=== PATIENT | male | born 1975 | race African-American/Black ===

== ENCOUNTER 2018-10-23 11:08 | Inpatient (IN) | payer OTHER ==
[~2018-10-23] VITALS: Ht 182.9 cm; Wt 114.4 kg
[2018-10-23] VITALS (9 sets, daily range): BP systolic 125–148; BP diastolic 69–96; PULSE 95–110; RESP 18–29; Ht 182.9 cm; Wt 114.4 kg
[2018-10-23] MEDS ORDERED: SOD CHLORIDE 0.9% 1,000 ML IV STA (12:10)
--- NOTE | 2018-10-23 12:57 | ERD ---
ER Documentation Chief Complaint Chief Complaint DIARRHEA X 3 WEEKS, FEELS WEAK, SEND BY DR DICKERSON FOR FURTHER EAVL HPI Very pleasant 43-year-old gentleman who presents to the emergency room with diarrhea. The patient since the end of August has had multiple episodes of nonbloody nonbilious emesis, looser stools that have been occasionally very dark and black. The patient exhibits generalized weakness. He additionally was st arted on antibiotics around the same time for dental infection and has had 2 courses of this. He denies any watery stool or malodorous stool. The patient was sent by Dr. fernández for further evaluation of possible C. difficile colitis. He also notes abdominal discomfort and a 30 pound weight loss over this timeframe. No recent travel. ROS All systems reviewed and are negative except as per history of present illness. Medications Home Meds No Active Prescriptions or Reported Meds Allergies Allergies: Coded Allergies: No Known Allergy (Unverified , 10/23/18) PMhx/Soc History of Surgery: Yes (LT KNEE SX) Anesthesia Reaction: No Hx Neurological Disorder: No Hx Respiratory Disorders: No Hx Cardiac Disorders: No Hx Psychiatric Problems: No Hx Miscellaneous Medical Probl: Yes (RT KNEE MENISCUS TEAR) Hx Alcohol Use: No Hx Substance Use: No Hx Tobacco Use: No Smoking Status: Never smoker FmHx Family History: No diabetes Physical Exam Vitals Vital Signs Date Temp Pulse Resp B/P (MAP) Pulse Ox O2 O2 Flow FiO2 Time Delivery Rate 10/23/18 98 22 166/84 97 Room Air 14:30 (111) 10/23/18 99.5 112 18 147/94 99 11:11 (111) Physical Exam General: Well developed, well nourished, no acute distress Head: Normocephalic, atraumatic. Eyes: Pupils equally reactive, EOM intact ENT: Dry mucous membranes Neck: Supple, no lymphadenopathy Respiratory: Lungs clear bilaterally, no distress Cardiovascular: Tachycardia, no murmurs, rubs, or gallops Abdominal: Soft, mild generalized tenderness without rebound or guarding gns : Deferred MSK: No edema, no unilateral swelling, 5/5 strength Neurologic: Alert and oriented, moving all extremities, normal speech, no focal weakness, no cerebellar signs Skin: No rash Psych: Normal mood Result Diagram: 10/23/18 1231 10/23/18 1231 Results 24 hrs Laboratory Tests Test 10/23/18 12:31 10/23/18 13:15 10/23/18 14:34 White Blood Count 12.5 10^3/ul Red Blood Count 6.04 10^6/ul Hemoglobin 17.5 g/dl Hematocrit 53.6 % Mean Corpuscular Volume 88.7 fl Mean Corpuscular Hemoglobin 29.0 pg Mean Corpuscular 32.6 g/dl Hemoglobin Concent Red Cell Distribution Width 12.6 % Platelet Count 316 10^3/UL Mean Platelet Volume 12.2 fl Immature Granulocytes % 0.500 % Neutrophils % 80.0 % Lymphocytes % 12.3 % Monocytes % 6.8 % Eosinophils % 0.0 % Basophils % 0.4 % Nucleated Red Blood Cells % 0.0 /100WBC Immature Granulocytes # 0.060 10^3/ul Neutrophils # 10.0 10^3/ul Lymphocytes # 1.5 10^3/ul Monocytes # 0.9 10^3/ul Eosinophils # 0.0 10^3/ul Basophils # 0.1 10^3/ul Nucleated Red Blood Cells # 0.0 10^3/ul Sodium Level 147 mmol/L Potassium Level 5.3 mmol/L Chloride Level 101 mmol/L Carbon Dioxide Level 14 mmol/L Anion Gap 32 Blood Urea Nitrogen 24 mg/dl Creatinine 1.47 mg/dl Est Glomerular Filtrat > 60 mL/min Rate mL/min Glucose Level 627 mg/dl Hemoglobin A1c % Calcium Level 10.0 mg/dl Phosphorus Level 7.5 mg/dl Magnesium Level 3.3 mg/dl Total Bilirubin 0.3 mg/dl Direct Bilirubin 0.00 mg/dl Indirect Bilirubin 0.3 mg/dl Aspartate Amino 64 IU/L Transf (AST/SGOT) Alanine 48 IU/L Aminotransferase (ALT/SGPT) Alkaline Phosphatase 197 IU/L Total Protein 10.0 g/dl Albumin 5.3 g/dl Globulin 4.70 g/dl Albumin/Globulin Ratio 1.12 Lipase 173 U/L Blood Gas Specimen Source Blood venous Arterial Blood Date Drawn 10/23/2018 1:20:21 PM Arterial Blood Gas VENOUS LINE Puncture Site Daniel Test N/A Venous Blood pH 7.248 Venous Blood pCO2 34.1 mmHG (Temp Corrected) Venous Blood pO2 34.7 mmHG (Temp Corrected) Venous Blood HCO3 14.6 mmol/L Venous Blood Oxygen 60.2 mmHG Saturation Venous Blood Base Excess -11.5 mmol/L Venous Blood Total 18.3 g/dl Hemoglobin Venous Blood Oxyhemoglobin 59.8 % Venous Blood Methemoglobin 0.3 % Carboxyhemoglobin 0.4 % Blood Gas Temperature 37.0 C Blood Gas Modality ROOM AIR FiO2 21.0 % Blood Gas Notified Whom Lydia Blood Gas Notified Time 10/23/2018 1:30:41 PM Bedside Glucose 493 mg/dL Current Medications Medications Dose Sig/Ken Start Time Status Last (Trade) Ordered Route PRN Stop Time Admin Dose Reason Admin Sodium 1,000 ml @ Q1H STAT 10/23/18 DC 10/23/18 Chloride 1,000 mls/hr IV 12:10 12:34 10/23/18 13:09 Sodium 1,000 ml @ ONCE ONCE 10/23/18 DC 10/23/18 Chloride 1,000 mls/hr IV 13:30 13:47 10/23/18 14:29 Potassium 1,000 ml @ Q0M IV 10/23/18 Chloride/Sodi 0 mls/hr 13:37 um Chloride Potassium 1,000 ml @ Q0M IV 10/23/18 Chloride/Dext 0 mls/hr 13:37 janette/ Sod Cl Potassium 1,000 ml @ Q0M IV 10/23/18 10/23/18 Chloride/Sodi 0 mls/hr 13:37 14:34 um Chloride Potassium 1,000 ml @ Q0M IV 10/23/18 Chloride/Dext 0 mls/hr 13:37 janette/ Sod Cl Sodium 1,000 ml @ Q0M IV 10/23/18 Chloride 0 mls/hr 13:37 1,000 ml @ Q0M IV 10/23/18 Dextrose/Sodi 0 mls/hr 13:37 um Chloride Insulin 101 ml @ ER DKA 10/23/18 10/23/18 Human 11.38 mls/ PROTOCOL IV 14:00 14:37 Regular 100 hr unit/ Sodium Chloride Lactated 1,000 ml @ ONCE ONCE 10/23/18 10/23/18 Ringer's 1,000 mls/hr IV 14:00 14:33 10/23/18 14:59 HYPOGLYCEM 10/23/18 Miscellaneous HYPOGLYCEMIA PROTOCOL PRN 14:00 TREATMENT XX Information .HYPOGLYCEMIA (* PROTOCOL Miscellaneous Pharmacy Order) Dextrose 50 ml Q15M PRN 10/23/18 (D50w IV 14:00 Syringe) .DECREASED GLUCOSE Dextrose 25 ml Q15M PRN 10/23/18 (D50w IV 14:00 Syringe) .DECREASED GLUCOSE Procedures/MDM EKG, MONITORS, & DIAGNOSTIC IMAGING: CT abdomen and pelvis: IMPRESSION: 1. No CT evidence of mass, lymphadenopathy, or acute inflammatory process. 2. Hepatic steatosis. 3. Punctate stone within the gallbladder. No CT evidence of acute cholecystitis. 4. Few scattered diverticula of the cecum and sigmoid colon without evidence of diverticulitis. RPTAT: LAB INTERPRETATION: * Slight leukocytosis, no anemia * Chemistry profile shows evidence of diabetic ketoacidosis. The patient has hyperglycemia, bicarb less than 18, anion gap acidosis, pH that is low. Urinalysis is pending. MEDICAL DECISION MAKING: The patient presents with approximately 1 month of diarrheal illness. He has weight loss. The patient does have antibiotic use but his diarrhea is not classically described as C. difficile colitis. Stool culture and C. difficile testing would be most appropriate. The patient also describes a 30 pound weight loss and abdominal discomfort. CT rule out mass would also be appropriate. Patient will benefit from fluid resuscitation. I did discuss initiation of probiotics with the patient. ER COURSE: * The patient was given 1 L of saline. * The patient was then diagnosed with diabetic ketoacidosis, he was informed. DKA protocol was initiated. * The patient was written for a second liter of saline, a third liter of lactated Ringer's given clinical evidence of dehydration. DKA protocol and insulin drip was initiated at this time. * Dr. Dickerson was notified and recommends admission through [facility]. CONSULTATION: [None] DISPOSITION PLAN: Accepting care team and consultations: I discussed the current laboratory data, diagnostic imaging and emergency care provided. Admitting team: Dr Melendez Admitting team indication: Insurance directed Critical Care Note: Total time: 42 minutes Indication/Organ System Threat: diabetic ketoacidosis I spent the above amount of critical care time with the patient, not including billable procedures. This included chart review, consultations, repeat bedside evaluations, and titration of appropriate medications to prevent cardiopulmonary or respiratory collapse. Departure Diagnosis: Primary Impression: Diabetic ketoacidosis Diabetes mellitus type: other specified (including KANDIS) Diabetes mellitus complication detail: without coma Qualified Codes: E13.10 - Other specified diabetes mellitus with ketoacidosis without coma Additional Impressions: Diarrhea with dehydration Diabetes mellitus, new onset Acute renal insufficiency Condition: Serious TYLOR CANO MD Oct 23, 2018 12:57
[2018-10-23] MEDS ORDERED: SOD CHLORIDE 0.9% 1,000 ML IV ONE (13:30)
[2018-10-23] MEDS ORDERED: NS + KCL 40 MEQ 1,000 ML IV SCH ×2 (13:37→14:54)
[2018-10-23] MEDS ORDERED: DEXTROSE 10 %/0.45 % NACL 1,000 ML IV SCH ×2 (13:37→14:54)
[2018-10-23] MEDS ORDERED: D10/0.45% NACL + KCL 40 MEQ 1,000 ML IV SCH ×2 (13:37→14:54)
[2018-10-23] MEDS ORDERED: NS + KCL 30 MEQ 1,000 ML IV SCH ×2 (13:37→14:54)
[2018-10-23] MEDS ORDERED: SOD CHLORIDE 0.9% 1,000 ML IV SCH ×2 (13:37→14:54)
[2018-10-23] MEDS ORDERED: INSULIN REGULAR, HUMAN 100 UNIT in SOD CHLORIDE 0.9% 100 ML IV SCH ×4 (14:00→15:00)
[2018-10-23] MEDS ORDERED: DEXTROSE 50% 50 ML SYRINGE IV PRN ×8 (14:00→23:00)
[2018-10-23] MEDS ORDERED: LACTATED RINGER'S 1,000 ML IV ONE (14:00)
[2018-10-23] MEDS ORDERED: D10/0.45% NACL + KCL 30 MEQ 1,000 ML IV SCH (14:54)
[2018-10-23] MEDS: ACCU-CHEK XX SCH ×8 (15:30→23:31)
[2018-10-23] MEDS: D10/0.45% NACL + KCL 30 MEQ 1,000 ML IV SCH ×2 (15:51→16:30)
[2018-10-23] MEDS ORDERED: GLUCOSE GEL 15 GRAM TUBE PO PRN ×2 (16:00)
[2018-10-23] MEDS ORDERED: GLUCOSE GEL 15 GRAM TUBE BUCCAL PRN (16:00)
[2018-10-23] MEDS ORDERED: GLUCAGON 1 MG INJ IM PRN (16:00)
--- NOTE | 2018-10-23 17:00 | NUR ---
ADMISSION NOTE: PT ADMITTED FROM ER WITH A 3 WEEK HX OF NAUSEA, VOMITING, DIARRHEA. PT STATES HIS LBM WAS 2 DAYS AGO, LAST EMESIS WAS LAST NIGHT. PT HAD A ROOT CANAL 3 WEEKS AGO & DEVELOPED AN INFECTION. PT STATES THAT HE HAS BEEN ON 3 ROUNDS OF ANTIBIOTICS. STATED THE FIRST ROUND DIDN'T HELP, SO THE DOCTOR CHANGED HIS ANTIBIOTICS. PT STATED THAT THE N&V, DIARRHEA STARTED WITH THE NEW ANTIBIOTIC. PT HAS A HX OF LEFT KNEE SURGERY & A CURRENT RIGHT MENISCUS TEAR. PT STATES HE HAS NEVER BEEN DIAGNOSED WITH DIABETES. A&OX4, VAZQUEZ, DENIES PAIN, SKIN INTACT. PT REFUSED PHOTO OF SACRUM. VOIDING IN URINAL. CURRENTLY NPO. ON DKA PROTOCOL. POC INITIATED & CONTINUED.
--- NOTE | 2018-10-23 19:36 | HP ---
DATE OF ADMISSION: 10/23/2018 CHIEF COMPLAINT: Diarrhea and weakness. HISTORY OF PRESENT ILLNESS: The patient is a 43-year-old male with type 1 diabetes mellitus, present s to ER with complaints of on and off diarrhea x 1 month. He also reports generalized weakness. The patient was given antibiotics prior to the onset of diarrhea, but he continued to have symptoms. He denies any abdominal pain. No fevers or chills. No genitourinary symptoms. No chest pain or short ness of breath. Initial evaluation revealed evidence of diabetic ketoacidosis. There was high anion gap and bicarb of 14. The patient was started on insulin drip in the emergency room. PHYSICAL EXAMINATION: Well-developed, well-nourished male who is somewhat lethargic. Vital signs ar e stable. He is afebrile. HEENT: Extraocular muscles are intact. Pupils equal and reactive to lig ht bilaterally. Oropharynx is moist. Neck is supple. No JVD, no carotid bruits. LUNGS: clear to auscultation bilaterally. CARDIAC: Regular rate and rhythm, no murmurs, rubs or gallops. ABDOMEN: Soft, mildly tender to palpation. No rebound, no guarding. Normoactive bowel sounds. EXTREMITIES: No clubbing, cyanosis or edema. NEUROLOGIC: Grossly nonfocal. ASSESSMENT: 1. 43-year-old male with diabetic ketoacidosis. 2. Poorly controlled type 1 diabetes. 3. Diarrhea. Rule-out underlying infection such as clostridium difficile colitis. 4. Dehydration. PLAN: Admit to ICU. Initiate DKA protocol. Monitor blood sugar hourly. Monitor basic metabolic pa sammi closely. Dictated By: DAVID FRY/BRIANNA Conf#: [id number] DID#: [id number]
[2018-10-23] MEDS ORDERED: INSULIN HUMAN REGULAR 100 UNIT in SOD CHLORIDE 0.9% 99 ML IV SCH (23:30)
--- NOTE | 2018-10-23 23:45 | NUR ---
Patient Update Called Dr. Melendez's office Dr. Iglesias applications consultant Notified anion gap is 12 Orders to stop DKA protocol received Orders placed to start "Insulin Infusion Critical Care" Pt informed on changes being made and as to why
[2018-10-24] VITALS (16 sets, daily range): BP systolic 113–152; BP diastolic 77–95; PULSE 84–118; RESP 14–26
[2018-10-24] MEDS: ACCU-CHEK XX SCH ×13 (00:07→12:27)
--- NOTE | 2018-10-24 06:46 | NUR ---
EOSS No acute events occurred this shift. Patient has good O2sat with room air, sinus rhythm, and A&Ox4. Patient is able to ambulate without any assistance, urinating in a urinal output of about 700cc this shift. Anion gap reached 12, spoke with Dr. Iglesias, DKA protocol dc'd and insulin infusion critical care protocol started. Patient currently running on alg 4, running at 1.5units/hr with last BG of 105. Pt still NPO, only able to tolerate ice chips to assist with dry mouth. Patient still had no bowel movement, and is scheduled to start his carb control diet tonight for dinner (pt is vegan, allergic to eggs, onions, and tomato). Dr. Melendez's office was paged due to sodium increase and potassium dropping. all needs were tended to, care plans updated and completed
[2018-10-24] MEDS ORDERED: POTASSIUM CHLORIDE 30 MEQ in SOD CHLORIDE 0.9% 985 ML IV SCH (08:00)
[2018-10-24] MEDS ORDERED: LANT3I SC (08:44)
[2018-10-24] MEDS ORDERED: INSU100I12 SQ (08:44)
--- NOTE | 2018-10-24 08:45 | PDOCDIS ---
Discharge Instructions CONDITION [id number] Patient Condition: [id number] Good HOME CARE INSTRUCTIONS: [id number] Special Diet: Uyiiz1q diabetic ACTIVITY: [id number] Activity Restrictions: Mniio5w No Restrictions FOLLOW UP/APPOINTMENTS Follow-up Plan pcp 1 week endocrinology 1 week DAVID CASTELAN MD Oct 24, 2018 08:45
[2018-10-24] MEDS ORDERED: LANC1KIT83 MC (08:49)
[2018-10-24] MEDS ORDERED: BLOO-1202 MC (08:49)
--- NOTE | 2018-10-24 09:00 | NUR ---
Dr. Flanagan rounded on patient. Ordered pt to be discharged home after hospital tray service worker speaks to him. Ordered to give lantus 25units now and DC insulin drip after two hours. Ordered to give K PHOS IV. Will follow orders. Katie metalsmith informed about pt, informed about pt blood sugars, will come back at noon to educate pt.
[2018-10-24] MEDS ORDERED: GLUCOSE GEL 15 GRAM TUBE PO PRN ×2 (09:30)
[2018-10-24] MEDS ORDERED: INSULIN GLARGINE [LANTus] (100 UNITS/ML) SYG SC SCH (09:30)
[2018-10-24] MEDS ORDERED: POTASSIUM PHOSPHATE 40 MEQ in SOD CHLORIDE 0.9% 250 ML IVPB ONE (09:30)
[2018-10-24] MEDS ORDERED: GLUCOSE GEL 15 GRAM TUBE BUCCAL PRN (09:30)
[2018-10-24] MEDS ORDERED: DEXTROSE 50% 50 ML SYRINGE IV PRN ×2 (09:30)
[2018-10-24] MEDS ORDERED: GLUCAGON 1 MG INJ IM PRN (09:30)
--- NOTE | 2018-10-24 12:17 | NUR ---
Case Mngt: Called [facility] ([phone]; [phone]) and informed him regarding home health order. Order faxed to [phone].
--- NOTE | 2018-10-24 13:29 | NUR ---
Case Update: Spoke Jess ([phone]) and confirmed home health arranged with [facility]. Spoke with Vickie at [employer] ([phone]) and informed her patient is going home today. Patient's bedside nurse informed.
--- NOTE | 2018-10-24 13:33 | NUR ---
Spoke to Case Management per case management [facility] will follow up with patient
--- NOTE | 2018-10-24 14:40 | NUR ---
Diabetes Education Referral: Thank you for the referral. Would suspect T2DM as pt's family history and presentation are large risk factors. HbA1c >14%; 114kg; BMI 34; Admitting serum glucose 627 mg/dl; Cr 0.98 Pt stated he has never been told he had DM or PreDM. Pt stated both his parents were diagnosed about 15 years ago with T2DM but with diet and exercise it is managed. Pt's also has T2DM. Also pt's son (now 18 years old) at age 8-9 was diagnosed with PreDM but also treated with diet and exercise and it resolved. Pt stated he eats very healthy: vegan/plant based diet. 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 Pt stated about 3 months ago he injured his knee at work and has been on light duty. Pt very in shock. With the use of handouts discussed at length with patient and at bedside how diabetes works in the body, where the glucose comes from, how food breaks down into glucose, and how different insulins (Basaglar & Humalog) work. Reviewed glucose targets (pre and post meal), reviewed the different food groups and when/how to manage glucose by adjusting the carbohydrates and proteins. Discussed how different factors cause extra glucose released from the liver and factors that cause insulin resistance. Discussed how an increase in activity can assist in lowering glucose levels. Reviewed signs and symptoms of hypoglycemia and treatment. After eligibility check, pt provided an One Touch Ultra-2 glucometer. Reviewed how to use glucometer, change date and time, load lancet devices and how to correctly complete a glucose reading. Pt declined a return demonstration finger stick; stated she used to use that meter so she can reinforce. Educated pt on the correct injection technique using demo insulin pen and Vianey pen needle. Discussed timing of the insulins, locations of administration, to rotate the administration site, proper storage of the insulin, and to never inject insulin cold. Pt again declined to return demonstrate but stated he has had to give injections before. Resources were given to pt for future follow up. All questions answered.
--- NOTE | 2018-10-24 15:24 | NUR ---
Discharge summary completed. Went through patient packet, answered all questions. PIV removed last set of vital signs finished. awaiting for volunteer services to escort pt.
--- NOTE | 2018-10-24 19:48 | DS ---
DATE OF ADMISSION: 10/23/2018 DATE OF DISCHARGE: 10/24/2018 DISCHARGE DIAGNOSES: 1. A 43-year-old male with new onset diabetic ketoacidosis. 2. New onset type 1 diabetes mellitus. 3. History of diarrhea, resolved. HOSPITAL COURSE: A 43-year-old gentleman with unremarkable past medical history [facility] and generalized weakness. The patient had received 2 courses of antibiotics 1 month prior to admission for dental work. He developed diarrhea following that. Ho wever, his symptoms resolved 2 days prior to admission. He denied any other symptoms except generali zed weakness. Initial evaluation revealed new onset diabetic ketoacidosis. The patient was admitted to ICU and underwent insulin therapy with DKA protocol. He is now in a stable condition for discharge. The patient had never been diagnosed with diabetes pr ior to this hospitalization. I prescribed Lantus insulin 25 units daily as well as Humalog insulin 5 units before each meal. I ordered lancets as well as glucometer. Diabetic education was requ ested. The patient will be referred to endocrinology as outpatient for tight control of his type 2 d iabetes mellitus. Dictated By: DAVID FRY/BRIANNA Conf#: [id number] DID#: [id number]
== END 2018-10-24 15:30 | disposition home health service (06) | DRG 639 ==
LOC: E/R 11:08 → ICU 14:21
PROVIDERS: ADMIT Internal Medicine; ATTEND Internal Medicine
DX: E10.10 Type 1 diabetes mellitus with ketoacidosis without coma (principal); E86.0 Dehydration; R19.7 Diarrhea, unspecified; Z79.4 Long term (current) use of insulin
CPT/HCPCS: 36415; 74176; 80048; 80053; 81001; 82803; 82962; 83036; 83690; 83735; 84100; 85025; 96360; J1815; J3480; J7030; J7050; J7120